=== PATIENT | male | born 1935 | race Caucasian/White ===

== ENCOUNTER 2018-02-04 16:56 | Inpatient (IN) | payer OTHER ==
[~2018-02-04] VITALS: Ht 175.3 cm; Wt 61.7 kg
[2018-02-04] MEDS ORDERED: FAMOTIDINE20 MG (17:26)
[2018-02-04] MEDS ORDERED: CITALOPRAM HBR10 MG (17:26)
[2018-02-04] MEDS ORDERED: ASPIR 8181 MG (17:26)
[2018-02-04] MEDS ORDERED: VERAPAMIL HCL40 MG (17:27)
== END 2018-02-12 16:24 | disposition other institution (70) | DRG 640 ==
LOC: ER 16:56 → MEDJ 02-05 00:28
PROC: BW28ZZZ Computerized Tomography (CT Scan) of Head (ICD-10-PCS; 2018-02-08)
PROC: 3E0F7GC Introduction of Other Therapeutic Substance into Respiratory Tract, Via Natural or Artificial Opening (ICD-10-PCS; principal; 2018-02-10)
DX: E86.0 Dehydration (principal); A41.9 Sepsis, unspecified organism; E46 Unspecified protein-calorie malnutrition; N39.0 Urinary tract infection, site not specified; N17.8 Other acute kidney failure; G30.8 Other Alzheimer's disease; F02.80 Dementia in other diseases classified elsewhere, unspecified severity, without behavioral disturbance, psychotic disturbance, mood disturbance, and anxiety; Z74.01 Bed confinement status; Z66 Do not resuscitate; E87.0 Hyperosmolality and hypernatremia; E78.00 Pure hypercholesterolemia, unspecified; B96.4 Proteus (mirabilis) (morganii) as the cause of diseases classified elsewhere; I11.0 Hypertensive heart disease with heart failure; I50.9 Heart failure, unspecified; E87.6 Hypokalemia